=== PATIENT | female | born 1995 | race Caucasian/White ===

== ENCOUNTER 2017-04-03 21:37 | Emergency (ER) | payer OTHER ==
[~2017-04-03] VITALS: Ht 162.6 cm; Wt 56.7 kg
[2017-04-03 21:55] VITALS: BP 109/72
--- NOTE | 2017-04-03 22:28 | NUR ---
INFORMED BY ADMITTING STAFF PT LEFT.
--- NOTE | 2017-04-03 22:28 | NUR ---
CALLED TO RM FOR FURTHER EVAL, NO ONE IN [facility] ANSWERING.
== END 2017-04-03 22:30 | disposition left against medical advice (07) ==
LOC: ER 21:39
DX: Z53.21 Procedure and treatment not carried out due to patient leaving prior to being seen by health care provider (principal)
CPT/HCPCS: A4606; Z7610